=== PATIENT | male | born 1955 | race Caucasian/White ===

== ENCOUNTER 2024-03-22 05:52 | Emergency (ER) | payer MEDICAID, OTHER ==
[~2024-03-22] VITALS: Ht 185.4 cm; Wt 77.2 kg
[2024-03-22 07:37] LABS: Hematocrit 42.4 % (41.0-53.0); Hemoglobin 14.4 g/dL (13.5-17.5); Mean Corpuscular Hemoglobin 28.6 pg (28.0-32.0); Mean Corpuscular Hgb Conc. 33.9 g/dL (32.0-36.0); Mean Corpuscular Volume 84.4 fL (80.0-100.0); Platelet Count (auto) 173 10^3/uL (140-450); Red Blood Cells 5.02 10^6/uL (4.5-5.90); Red Cell Distribution Width 15.8 % (11.8-14.3); White Blood Cell 5.4 10^3/uL (4.4-10.8)
[2024-03-22] MEDS: ALBUTEROL SULF 2.5 MG/0.5ML(0.5%) NEB SOLN NEB ONE (07:38)
[2024-03-22] MEDS: IPRATROPIUM BROM 0.5 MG/2.5ML INH SOL NEB ONE (07:39)
[2024-03-22 07:44] LABS: Anion Gap 5 (5-15); Carbon Dioxide 27 mmol/L (20-30); Chloride 108 mmol/L (98-107); Potassium 4.4 mmol/L (3.5-5.1); Sodium 140 mmol/L (136-145)
[2024-03-22 07:45] LABS: Calcium 9.7 mg/dL (8.7-10.4)
[2024-03-22 07:48] LABS: Band Neutrophils % (manual) 0; Basophils % (manual) 0 (0.0-2.0); Blast Cells 0; Eosinophils % (manual) 0 (0-7); Metamyelocytes % 0; Myelocytes % 0; Promyelocytes % 0; Reactive Lymphocytes 0
[2024-03-22 07:50] LABS: BUN/Creatinine Ratio 19.3 (10.0-20.0); Blood Urea Nitrogen 28 mg/dL (9-23); Glucose 97 mg/dL (74-106)
[2024-03-22 07:52] VITALS: BP 146/91; PULSE 104; RESP 22; TEMP 97.7; O2SAT 95
[2024-03-22] MEDS: methylPREDNISolone SOD SUCC 125 MG/2 ML VL IV ONE (09:06)
[2024-03-22 10:32] LABS: Lymphocytes % (manual) 19 (10.0-50.0); Monocytes % (manual) 18 (0-12); Platelet Estimate Adequate
== END 2024-03-22 09:30 | disposition left against medical advice (07) ==
LOC: ER 05:52
DX: J44.9 Chronic obstructive pulmonary disease, unspecified (principal); R07.89 Other chest pain
CPT/HCPCS: 36415; 71045; 80048; 84484; 85007; 85027; 93005; 94640; 96374; 99291; J2919

== ENCOUNTER 2024-03-28 06:54 | Inpatient (IN) | payer MEDICAID ==
[~2024-03-28] VITALS: Ht 185.4 cm; Wt 77.5 kg
[2024-03-28 08:13] LABS: Chloride 109 mmol/L (98-107); Potassium 5.3 mmol/L (3.5-5.1); Sodium 141 mmol/L (136-145)
[2024-03-28 08:14] LABS: Anion Gap 6 (5-15); Carbon Dioxide 26 mmol/L (20-30)
[2024-03-28 08:19] LABS: BUN/Creatinine Ratio 15.3 (10.0-20.0); Blood Urea Nitrogen 23 mg/dL (9-23); Glucose 110 mg/dL (74-106)
[2024-03-28 08:22] LABS: Basophils # (auto) 0 10 ^3/uL (0-0.2); Basophils % (auto) 0.5 % (0.0-2.0); Eosinophils # (auto) 0.1 10 ^3/uL (0-0.8); Eosinophils % (auto) 2.8 % (0.0-7.0); Hematocrit 39.9 % (41.0-53.0); Hemoglobin 13.6 g/dL (13.5-17.5); Lymphocytes # (auto) 1.1 10 ^3/uL (0.4-5.4); Lymphocytes % (auto) 26.3 % (10.0-50.0); Mean Corpuscular Hemoglobin 29.1 pg (28.0-32.0); Mean Corpuscular Volume 85.5 fL (80.0-100.0); Monocytes # (auto) 0.8 10 ^3/uL (0-1.3); Neutrophils # (auto) 2.2 10 ^3/uL (1.6-8.6); Neutrophils % (auto) 51.2 % (37.0-80.0); Platelet Count (auto) 175 10^3/uL (140-450); Red Blood Cells 4.67 10^6/uL (4.5-5.90); Red Cell Distribution Width 15.5 % (11.8-14.3); White Blood Cell 4.3 10^3/uL (4.4-10.8)
[2024-03-28 08:30] LABS: Monocytes % (auto) 19.2 % (0.0-12.0)
[2024-03-28] MEDS: IPRATROPIUM BROM 0.5 MG/2.5ML INH SOL NEB ONE (08:42)
[2024-03-28] MEDS: ALBUTEROL SULF 2.5 MG/0.5ML(0.5%) NEB SOLN NEB ONE (08:42)
[2024-03-28] MEDS: methylPREDNISolone SOD SUCC 125 MG/2 ML VL IV ONE (08:47)
[2024-03-28] MEDS: MAGNESIUM SULFATE 1GM/100ML 100 ML IV ONE (08:47)
[2024-03-28] MEDS: ENOXAPARIN SOD 80 MG/0.8ML SYRINGE SC ONE (08:48)
[2024-03-28 08:57] VITALS: O2SAT 98
[2024-03-28 09:31] LABS: Basophils % (manual) 0 (0.0-2.0); Blast Cells 0; Metamyelocytes % 0; Myelocytes % 0; Promyelocytes % 0; Reactive Lymphocytes 0
[2024-03-28 09:32] LABS: Eosinophils % (manual) 2 (0-7); Monocytes % (manual) 19 (0-12)
[2024-03-28 09:33] LABS: Anisocytosis Slight; Band Neutrophils % (manual) 1; Lymphocytes % (manual) 30 (10.0-50.0)
[2024-03-28 09:34] LABS: Platelet Estimate Adequate
[2024-03-28 09:35] LABS: Nucleated Red Blood Cells % 0.3 %
[2024-03-28] MEDS ORDERED: ALBUTEROL SULF 2.5 MG/0.5ML(0.5%) NEB SOLN NEB PRN (13:30)
[2024-03-28] MEDS ORDERED: DOCUSATE SOD 100 MG CAP PO PRN (13:30)
[2024-03-28] MEDS ORDERED: ACETAMINOPHEN 325 MG TAB PO PRN (13:30)
[2024-03-28] MEDS ORDERED: hydrALAZINE HCL 20 MG/ML VL IV PRN (13:30)
[2024-03-28] MEDS ORDERED: HYDROcodone-ACET 5/325MG TAB PO PRN (13:30)
[2024-03-28] MEDS ORDERED: ONDANSETRON HCL 4 MG/2 ML VIAL IV PRN (13:30)
[2024-03-28] MEDS ORDERED: IPRATROPIUM BROM 0.5 MG/2.5ML INH SOL NEB PRN (13:30)
[2024-03-28 13:44] VITALS: BP 151/98; PULSE 102; RESP 18; TEMP 98; O2SAT 98
[2024-03-28] MEDS: methylPREDNISolone SOD SUCC 40 MG/ML VL IV SCH (14:00)
[2024-03-28] MEDS: FAMOTIDINE (10MG/ML) 2ML VL IV ONE (14:26)
[2024-03-28] MEDS: SODIUM ZIRCONIUM CYCL 10 GM PAK PO ONE (14:27)
[2024-03-28] MEDS ORDERED: NITROGLYCERIN 0.4 MG SL TAB SL PRN (14:45)
[2024-03-28] MEDS ORDERED: MORPHINE SULFATE INJ 2 MG/ml SYRG IV PRN (14:45)
[2024-03-28 14:47] LABS: Magnesium 2.2 mg/dL (1.6-2.6)
[2024-03-28] MEDS: SODIUM CHLORIDE 0.9% 1,000 ML IV SCH (14:49)
[2024-03-28] MEDS: FUROSEMIDE 40 MG/4 ML VIAL IV ONE (14:50)
[2024-03-28 18:35] VITALS: O2SAT 92
[2024-03-28 18:36] LABS: Urine Bacteria None Seen /hpf (None Seen)
[2024-03-28 18:46] LABS: Urine Blood Negative /uL (Negative); Urine Clarity Clear (Clear); Urine Color Light-Yellow (Yellow); Urine Protein, UAD Negative (Negative); Urine Specific Gravity 1.009 (1.001-1.035); Urine Urobilinogen Normal (Negative); Urine WBC <1 /hpf (0 - 3); Urine pH 5.5 (5.0-9.0)
[2024-03-28 18:58] LABS: Amphetamine Screen, Urine Pos (NEGATIVE); Barbiturate Scree,Urine Neg (NEGATIVE); Benzodiazephine Screen, Urine Neg (NEGATIVE); Cocaine Screen, Urine Neg (NEGATIVE); Opiate Scree,Urine Neg (NEGATIVE); Phencyclidine Screen, Urine Neg (NEGATIVE)
[2024-03-28 18:59] LABS: Cannabinoid Screen, Urine Neg (NEGATIVE)
[2024-03-28 19:55] VITALS: PULSE 103; RESP 25; O2SAT 95
[2024-03-28 21:57] VITALS: BP 137/84; PULSE 101; RESP 20; TEMP 98.8; O2SAT 98
[2024-03-28 22:15] VITALS: BP 137/84; PULSE 101; RESP 20; TEMP 98.8; O2SAT 98
[2024-03-28] MEDS: ATORVASTATIN 20 MG TAB PO SCH (22:20)
[2024-03-28] MEDS: CARVEDILOL 3.125 MG TAB PO SCH (22:38)
[2024-03-29] VITALS (10 sets, daily range): BP systolic 106–150; BP diastolic 66–86; PULSE 68–99; RESP 17–20; TEMP 97.5–99.4; O2SAT 90–98
[2024-03-29 07:41] LABS: Basophils # (auto) 0 10 ^3/uL (0-0.2); Basophils % (auto) 0.1 % (0.0-2.0); Eosinophils # (auto) 0 10 ^3/uL (0-0.8); Hematocrit 38.8 % (41.0-53.0); Hemoglobin 13.2 g/dL (13.5-17.5); Lymphocytes # (auto) 0.7 10 ^3/uL (0.4-5.4); Lymphocytes % (auto) 12.3 % (10.0-50.0); Mean Corpuscular Hemoglobin 28.8 pg (28.0-32.0); Mean Corpuscular Hgb Conc. 34.1 g/dL (32.0-36.0); Mean Corpuscular Volume 84.4 fL (80.0-100.0); Monocytes # (auto) 0.4 10 ^3/uL (0-1.3); Monocytes % (auto) 7.5 % (0.0-12.0); Neutrophils # (auto) 4.5 10 ^3/uL (1.6-8.6); Neutrophils % (auto) 80.1 % (37.0-80.0); Nucleated Red Blood Cells % 0.1 %; Platelet Count (auto) 172 10^3/uL (140-450); Red Blood Cells 4.59 10^6/uL (4.5-5.90); Red Cell Distribution Width 14.9 % (11.8-14.3); White Blood Cell 5.6 10^3/uL (4.4-10.8)
[2024-03-29 07:47] LABS: Alanine Aminotransferase 41 U/L (7-40); Alkaline Phosphatase 83 U/L (46-116); Anion Gap 9 (5-15); BUN/Creatinine Ratio 18.2 (10.0-20.0); Blood Urea Nitrogen 24 mg/dL (9-23); Calcium 9.5 mg/dL (8.7-10.4); Carbon Dioxide 25 mmol/L (20-30); Chloride 105 mmol/L (98-107); Glucose 122 mg/dL (74-106); Potassium 4.1 mmol/L (3.5-5.1); Sodium 139 mmol/L (136-145)
[2024-03-29 07:48] LABS: Albumin 3.7 g/dL (3.2-4.8); Aspartate Aminotransferase 22 U/L (13-40)
[2024-03-29 07:49] LABS: Bilirubin, Total 0.7 mg/dL (0.2-1.0); Total Protein 6.1 g/dL (5.7-8.2)
[2024-03-29] MEDS: FUROSEMIDE 40 MG/4 ML VIAL IV SCH (09:31)
[2024-03-29] MEDS: FAMOTIDINE (10MG/ML) 2ML VL IV SCH (09:31)
[2024-03-29] MEDS: ASPirin 81 mg TAB PO SCH (09:33)
[2024-03-29] MEDS: EMPAGLIFLOZIN 10 MG TAB PO SCH (09:33)
[2024-03-29] MEDS: AMIODARONE HCL 200 MG TAB PO SCH (21:41)
[2024-03-29] MEDS: APIXABAN 5 MG TAB PO SCH (21:42)
[2024-03-30 01:00] VITALS: BP 128/80; PULSE 96; RESP 18; TEMP 98.1; O2SAT 93
[2024-03-30 05:00] VITALS: BP 149/97; PULSE 108; RESP 18; TEMP 97.4; O2SAT 97
[2024-03-30 07:59] LABS: Basophils # (auto) 0 10 ^3/uL (0-0.2); Eosinophils # (auto) 0 10 ^3/uL (0-0.8); Eosinophils % (auto) 0.1 % (0.0-7.0); Hematocrit 40.9 % (41.0-53.0); Hemoglobin 14.2 g/dL (13.5-17.5); Lymphocytes # (auto) 1.3 10 ^3/uL (0.4-5.4); Lymphocytes % (auto) 12.5 % (10.0-50.0); Mean Corpuscular Hemoglobin 29.3 pg (28.0-32.0); Mean Corpuscular Hgb Conc. 34.8 g/dL (32.0-36.0); Mean Corpuscular Volume 84.2 fL (80.0-100.0); Monocytes # (auto) 1.2 10 ^3/uL (0-1.3); Monocytes % (auto) 12.2 % (0.0-12.0); Neutrophils # (auto) 7.7 10 ^3/uL (1.6-8.6); Neutrophils % (auto) 75.2 % (37.0-80.0); Platelet Count (auto) 209 10^3/uL (140-450); Red Blood Cells 4.85 10^6/uL (4.5-5.90); Red Cell Distribution Width 15.1 % (11.8-14.3); White Blood Cell 10.2 10^3/uL (4.4-10.8)
[2024-03-30 08:00] VITALS: PULSE 100; PULSE 99; RESP 19; O2SAT 93
[2024-03-30 08:12] LABS: Anion Gap 8 (5-15); Carbon Dioxide 26 mmol/L (20-30); Chloride 103 mmol/L (98-107); Potassium 4.2 mmol/L (3.5-5.1); Sodium 137 mmol/L (136-145)
[2024-03-30 08:13] LABS: Calcium 9.9 mg/dL (8.7-10.4)
[2024-03-30 08:18] LABS: BUN/Creatinine Ratio 22.4 (10.0-20.0); Glucose 104 mg/dL (74-106)
[2024-03-30 08:19] LABS: Blood Urea Nitrogen 35 mg/dL (9-23)
[2024-03-30 09:00] VITALS: BP 139/92; PULSE 89; RESP 18; TEMP 97.7; O2SAT 97
[2024-03-30] MEDS ORDERED: EMPA1TAB PO (10:43)
[2024-03-30] MEDS ORDERED: CARV-214 PO (10:43)
[2024-03-30] MEDS ORDERED: APIX5TAB PO (10:43)
[2024-03-30] MEDS ORDERED: ASPI-325 PO (10:43)
[2024-03-30] MEDS ORDERED: AMIO200T13 PO (10:43)
[2024-03-30] MEDS ORDERED: ATOR20TA50 PO (10:43)
[2024-03-30 13:00] VITALS: BP 149/88; PULSE 89; RESP 18; TEMP 97.8; O2SAT 97
[2024-03-30 15:50] VITALS: BP 144/98; PULSE 91; RESP 18; TEMP 98.1; O2SAT 99
[2024-03-30] MEDS ORDERED: CARVEDILOL 3.125 MG TAB PO SCH (22:00)
== END 2024-03-30 16:00 | disposition home or self-care (01) | DRG 194 ==
LOC: ER 06:54 → TELE 14:37 → TELE-WESTW 21:55
PROVIDERS: ADMIT Internal Medicine Geriatric Medicine; ATTEND Internal Medicine Geriatric Medicine
DX: I11.0 Hypertensive heart disease with heart failure (principal); I21.A1 Myocardial infarction type 2; I42.7 Cardiomyopathy due to drug and external agent; I50.23 Acute on chronic systolic (congestive) heart failure; N17.9 Acute kidney failure, unspecified; I47.20 Ventricular tachycardia, unspecified; T50.995A Adverse effect of other drugs, medicaments and biological substances, initial encounter; I08.1 Rheumatic disorders of both mitral and tricuspid valves; E87.5 Hyperkalemia; F17.210 Nicotine dependence, cigarettes, uncomplicated; J44.9 Chronic obstructive pulmonary disease, unspecified; F15.10 Other stimulant abuse, uncomplicated; I48.0 Paroxysmal atrial fibrillation; Y92.89 Other specified places as the place of occurrence of the external cause; Z79.899 Other long term (current) drug therapy
CPT/HCPCS: 36415; 71045; 80048; 80053; 80061; 80307; 81001; 83036; 83735; 83880; 84443; 84484; 85025; 93005; 93306; 94640; 99291; G0378; J3490

== ENCOUNTER → 2024-04-15 | Outpatient (CLI) | payer MEDICAID ==
[~2024-04-15] MED LIST: AMIO200T13 PO; APIX5TAB PO; ASPI-325 PO; ATOR20TA50 PO; CARV-214 PO; EMPA1TAB PO
[2024-04-15 08:30] LABS: Hematocrit 41.5 % (41.0-53.0); Hemoglobin 14.1 g/dL (13.5-17.5); Mean Corpuscular Hgb Conc. 34.1 g/dL (32.0-36.0); Mean Corpuscular Volume 85.2 fL (80.0-100.0); Platelet Count (auto) 163 10^3/uL (140-450); Red Blood Cells 4.87 10^6/uL (4.5-5.90); Red Cell Distribution Width 15.7 % (11.8-14.3); White Blood Cell 4.4 10^3/uL (4.4-10.8)
[2024-04-15 08:38] LABS: Basophils % (manual) 0 (0.0-2.0); Blast Cells 0; Metamyelocytes % 0; Myelocytes % 0; Promyelocytes % 0; Reactive Lymphocytes 0
[2024-04-15 09:11] LABS: Band Neutrophils % (manual) 8; Eosinophils % (manual) 4 (0-7); Lymphocytes % (manual) 36 (10.0-50.0); Monocytes % (manual) 15 (0-12); Platelet Estimate Adequate
[2024-04-15 09:27] LABS: Alanine Aminotransferase 76 U/L (7-40); Alkaline Phosphatase 88 U/L (46-116); Anion Gap 5 (5-15); Aspartate Aminotransferase 34 U/L (13-40); BUN/Creatinine Ratio 14.9 (10.0-20.0); Blood Urea Nitrogen 22 mg/dL (9-23); Calcium 9.9 mg/dL (8.7-10.4); Carbon Dioxide 27 mmol/L (20-31); Chloride 108 mmol/L (98-107); Glucose 97 mg/dL (74-106); LDL Cholesterol 59 mg/dL (< 100); Potassium 4.9 mmol/L (3.5-5.1); Sodium 140 mmol/L (136-145); Triglycerides 62 mg/dL (< 150)
[2024-04-15 09:28] LABS: Bilirubin, Total 0.9 mg/dL (0.2-1.0); Cholesterol 116 mg/dL (< 200); HDL Cholesterol 51 mg/dL (40-59); Total Protein 6.4 g/dL (5.7-8.2)
== END | disposition home or self-care (01) ==
LOC: LAB 07:42
PROVIDERS: ATTEND Internal Medicine
DX: I50.9 Heart failure, unspecified (principal)
CPT/HCPCS: 36415; 80053; 80061; 82607; 83036; 83880; 84443; 85007; 85027

== ENCOUNTER → 2024-04-28 | Outpatient (CLI) | payer MEDICAID ==
[2024-04-28 11:24] LABS: Urine Bacteria None Seen /hpf (None Seen)
[2024-04-28 11:27] LABS: Hematocrit 44.4 % (41.0-53.0); Hemoglobin 15.1 g/dL (13.5-17.5); Mean Corpuscular Hemoglobin 28.8 pg (28.0-32.0); Mean Corpuscular Hgb Conc. 34.1 g/dL (32.0-36.0); Mean Corpuscular Volume 84.4 fL (80.0-100.0); Platelet Count (auto) 173 10^3/uL (140-450); Red Blood Cells 5.26 10^6/uL (4.5-5.90); Red Cell Distribution Width 15.1 % (11.8-14.3); White Blood Cell 3.2 10^3/uL (4.4-10.8)
[2024-04-28 11:30] LABS: Band Neutrophils % (manual) 0; Basophils % (manual) 0 (0.0-2.0); Blast Cells 0; Metamyelocytes % 0; Myelocytes % 0; Promyelocytes % 0; Reactive Lymphocytes 0
[2024-04-28 11:55] LABS: Urine Blood Negative /uL (Negative); Urine Clarity Clear (Clear); Urine Color Yellow (Yellow); Urine Mucus FEW (None Seen); Urine Protein, UAD TRACE (Negative); Urine Specific Gravity 1.022 (1.001-1.035); Urine Urobilinogen Normal (Negative); Urine WBC 3 /hpf (0 - 3)
[2024-04-28 12:07] LABS: Anion Gap 5 (5-15); Carbon Dioxide 28 mmol/L (20-31); Chloride 105 mmol/L (98-107); Potassium 4.5 mmol/L (3.5-5.1); Sodium 138 mmol/L (136-145)
[2024-04-28 12:09] LABS: Calcium 9.8 mg/dL (8.7-10.4)
[2024-04-28 12:13] LABS: BUN/Creatinine Ratio 13.4 (10.0-20.0); Blood Urea Nitrogen 20 mg/dL (9-23); Glucose 137 mg/dL (74-106)
[2024-04-28 12:34] LABS: Eosinophils % (manual) 2 (0-7); Lymphocytes % (manual) 50 (10.0-50.0); Monocytes % (manual) 10 (0-12); Platelet Estimate Adequate
== END | disposition home or self-care (01) ==
LOC: LAB 11:12
PROVIDERS: ATTEND Internal Medicine
DX: I50.33 Acute on chronic diastolic (congestive) heart failure (principal); R73.03 Prediabetes
CPT/HCPCS: 36415; 80048; 81001; 82043; 83880; 85007; 85027

== ENCOUNTER → 2024-05-23 | Outpatient (CLI) | payer MEDICAID ==
[2024-05-23 11:35] LABS: Urine Bacteria None Seen /hpf (None Seen)
[2024-05-23 11:45] LABS: Urine Blood Negative /uL (Negative); Urine Clarity Clear (Clear); Urine Color Light-Yellow (Yellow); Urine Protein, UAD Negative (Negative); Urine Urobilinogen Normal (Negative); Urine WBC <1 /hpf (0 - 3); Urine pH 5.5 (5.0-9.0)
[2024-05-23 13:03] LABS: Amphetamine Screen, Urine Neg (NEGATIVE); Barbiturate Scree,Urine Neg (NEGATIVE); Benzodiazephine Screen, Urine Neg (NEGATIVE); Cannabinoid Screen, Urine Pos (NEGATIVE); Cocaine Screen, Urine Neg (NEGATIVE); Opiate Scree,Urine Neg (NEGATIVE); Phencyclidine Screen, Urine Neg (NEGATIVE)
== END | disposition home or self-care (01) ==
LOC: LAB 11:18
PROVIDERS: ATTEND Internal Medicine
DX: I10 Essential (primary) hypertension (principal)
CPT/HCPCS: 80307; 81001; 82274

== ENCOUNTER → 2024-05-24 | Outpatient (CLI) | payer MEDICAID ==
[2024-05-24 08:34] LABS: Hematocrit 43.3 % (41.0-53.0); Hemoglobin 14.8 g/dL (13.5-17.5); Mean Corpuscular Hemoglobin 28.5 pg (28.0-32.0); Mean Corpuscular Hgb Conc. 34.1 g/dL (32.0-36.0); Mean Corpuscular Volume 83.6 fL (80.0-100.0); Platelet Count (auto) 158 10^3/uL (140-450); Red Blood Cells 5.18 10^6/uL (4.5-5.90); Red Cell Distribution Width 15.1 % (11.8-14.3); White Blood Cell 3.6 10^3/uL (4.4-10.8)
[2024-05-24 08:45] LABS: Band Neutrophils % (manual) 0; Basophils % (manual) 0 (0.0-2.0); Blast Cells 0; Metamyelocytes % 0; Myelocytes % 0; Promyelocytes % 0; Reactive Lymphocytes 0
[2024-05-24 09:26] LABS: Alanine Aminotransferase 28 U/L (7-40); Albumin 4.3 g/dL (3.2-4.8); Alkaline Phosphatase 98 U/L (46-116); Anion Gap 5 (5-15); Aspartate Aminotransferase 20 U/L (13-40); BUN/Creatinine Ratio 15.2 (10.0-20.0); Blood Urea Nitrogen 22 mg/dL (9-23); Calcium 10.5 mg/dL (8.7-10.4); Carbon Dioxide 30 mmol/L (20-31); Chloride 106 mmol/L (98-107); Glucose 98 mg/dL (74-106); LDL Cholesterol 77 mg/dL (< 100); Sodium 141 mmol/L (136-145); Triglycerides 81 mg/dL (< 150)
[2024-05-24 09:27] LABS: Bilirubin, Total 0.6 mg/dL (0.2-1.0); Cholesterol 141 mg/dL (< 200); HDL Cholesterol 50 mg/dL (40-59); Total Protein 7.2 g/dL (5.7-8.2)
[2024-05-24 09:53] LABS: Lymphocytes % (manual) 34 (10.0-50.0)
[2024-05-24 09:54] LABS: Eosinophils % (manual) 6 (0-7); Monocytes % (manual) 27 (0-12)
[2024-05-24 09:55] LABS: Platelet Estimate Adequate; RBC Morphology Normal
[2024-05-24 12:08] LABS: Prostate Specific Antigen 1.76 ng/mL (0.0-4.0)
[2024-05-24 12:14] LABS: Folate (Folic Acid) 20.3 ng/mL (>5.38)
== END | disposition home or self-care (01) ==
LOC: LAB 07:57
PROVIDERS: ATTEND Internal Medicine
DX: I10 Essential (primary) hypertension (principal); Z79.899 Other long term (current) drug therapy
CPT/HCPCS: 36415; 80053; 80061; 82306; 82607; 82746; 83036; 84153; 84443; 85007; 85027

== ENCOUNTER → 2024-07-08 | Outpatient (CLI) | payer MEDICAID ==
[2024-07-08 07:16] LABS: Anion Gap 5 (5-15); Carbon Dioxide 28 mmol/L (20-31); Chloride 105 mmol/L (98-107); Potassium 4.2 mmol/L (3.5-5.1); Sodium 138 mmol/L (136-145)
[2024-07-08 07:21] LABS: Calcium 10.6 mg/dL (8.7-10.4); Glucose 93 mg/dL (74-106)
[2024-07-08 07:22] LABS: Blood Urea Nitrogen 17 mg/dL (9-23)
== END | disposition home or self-care (01) ==
LOC: LAB 06:55
PROVIDERS: ATTEND Internal Medicine
DX: I10 Essential (primary) hypertension (principal)
CPT/HCPCS: 36415; 80048

== ENCOUNTER 2024-07-13 15:16 | Emergency (ER) | payer MEDICAID ==
[~2024-07-13] VITALS: Ht 185.4 cm; Wt 78.0 kg
--- NOTE | 2024-07-13 16:30 | ED.PDOC ---
HPI Comments HPI: Poor Historian. 68-year-old male sent from his PCP's office because he was hypertensive. Patient has not been taking any of his blood pressure medication because he was unable to pick it up from the pharmacy. Patient was found according to the patient of systolic blood pressure in the 180s then 200s. Patient does not know his medications list and what medical conditions he has however he states he is on Eliquis. He also states that is past medical history includes a heart functioning at 15% Patient otherwise denies any acute symptoms. Past Medcial History: Past Surgical History: Tonsillectomy REVIEW OF SYSTEMS: CONSTITUTIONAL: Denies acute: fever, diaphoresis, chills, generalized weakness. HEAD: Denies acute: headache, photophobia Eyes: Denies acute: Double vision, vision loss, eye pain, eye discharge. EARS: Denies acute: tinnitus, hearing loss, ear discharge, ear pain, THROAT: Denies acute: sore throat, swelling, difficulty swallowing , pain with sw allowing, change in voice. NECK: Denies acute: neck pain, neck swelling, stiff neck. HEART: Denies acute : chest pain, palpitations, LUNGS: Denies acute: SOB, wheezing, cough, hemoptysis ABDOMEN: Denies acute: abdominal pain, Nausea, Vomiting, diarrhea, melena , hematemesis, hematochezia SKIN: Denies acute: rash, redness, lesions, itchiness. EXTREMITIES: Denies acute: calf pain, numbness, tingling, weakness, denies pain in extremity. Denies acute: Low back pain. Neuro: Denies acute: focal neurological deficit, motor or sensory focal neurological deficit, tremors, seizure like activity, confusion, dizziness, change in mental status, loss of bowel or bladder function, cauda equina like symptoms. : Denies acute: dysuria, hematuria, flank pain, increase in urinary frequency. PSYCH: Denies acute: hallucination, suicidal ideation, homicidal ideation. PHYSICAL EXAM: General: no acute distress, awake and alert. Head: normocephalic, atraumatic. Neck: supple, trachea is midline, no swelling. Throat: Normal phonation. Eyes:, no erythema, no purulent discharge, no proptosis, no icterus. Heart: regular rate, regular rhythm, no significant murmur appreciated. Lungs: no apparent respiratory distress, Able to speak in full sentences. No wheezing, no rhonchi, no crackles. No stridors Clear to auscultation bilaterally. Abdomen: non tender to palpation, non distended, soft, no guarding, no rebound, + bowel sounds. Neuro: Awake, Alert, oriented to name, self, situation, follows commands GCS=15. Speech is normal. Skin: no petechia, no purpura, no cyanosis, non-pale, not jaundice. Lower extremities: --trace bilateral - Pitting edema no deformity, no focal swelling, no calf TTP. Makes eye contact. moves all four extremities. Face: no apparent facial droop. Ambulating in the ED independently. Chief Complaint: High Blood Pressure Time Seen by MD: 15:25 Primary Care Provider: NONE Reviewed Notes: Nurses Notes, Allergies Allergies: Coded Allergies: NO KNOWN ALLERGIES (Unverified , 03/22/24) Home Meds Active Scripts Apixaban Base (ELIQUIS) 5 Mg Tab, 5 MG PO BID for 30 Days, #60 TAB 3 Refills Prov:BENNIE ARECHIGA RESIDENT 03/30/24 Empagliflozin (Jardiance) 10 Mg Tab, 10 MG PO DAILY for 30 Days, #30 TAB 3 Refills Prov:BENNIE ARECHIGA RESIDENT 03/30/24 Carvedilol (COREG) 3.125 Mg Tab, 6.25 MG PO Q12HR for 30 Days, #60 TAB 3 Refills Prov:BENNIE ARECHIGA [facility] 03/30/24 Atorvastatin Calcium (ATORVASTATIN CALCIUM) 20 Mg Tab, 10 MG PO HS for 30 Days, #15 TAB 3 Refills Prov:BENNIE ARECHIGA RESIDENT 03/30/24 Aspirin (Aspirin Low Dose) 81 Mg Tab, 81 MG PO DAILY for 30 Days, #30 TAB 3 Refills Prov:BENNIE ARECHIGA [facility] 03/30/24 Amiodarone HCl (Amiodarone HCl) 200 Mg Tab, 200 MG PO Q12HR for 30 Days, #60 TAB Prov:BENNIE ARECHIGA RESIDENT 03/30/24 Information Source: Patient Past Medical History PAST MEDICAL HISTORY: Denies Surgical History: Denies all surgeries Family History Family History: Reviewed,noncontributory to illness, Unknown Social History Smoker: Cigarettes Alcohol: Denies ETOH Use Drugs: Denies Drug Use Lives In: Home Was a procedure done? Was a procedure done?: No X-Ray, Labs, Meds, VS Vital Signs Date Time Temp Pulse Resp B/P (MAP) Pulse Ox O2 Delivery O2 Flow Rate FiO2 07/13/24 20:49 91 16 143/88 (106) 98 07/13/24 20:49 143/88 07/13/24 19:49 194/111 07/13/24 19:45 Room Air* 0 21 07/13/24 19:45 89 16 194/111 (138) 97 07/13/24 18:39 98.6 87 16 161/98 (119) 96 98.6 07/13/24 17:45 99 18 97 Room Air 07/13/24 17:43 208/115 07/13/24 15:38 99.6 96 20 193/121 (145) 99 185/107 (133) Lab Test 07/13/24 19:16 07/13/24 18:22 Range/Units Troponin I High Sensitivity 38 38 </=54 ng/L White Blood Count 4.3 L 4.4-10.8 10^3/uL Red Blood Count 5.09 4.5-5.90 10^6/uL Hemoglobin 14.3 13.5-17.5 g/dL Hematocrit 41.8 41.0-53.0 % Mean Corpuscular Volume 82.2 80.0-100.0 fL Mean Corpuscular Hemoglobin 28.1 28.0-32.0 pg Mean Corpuscular Hemoglobin Concent 34.2 32.0-36.0 g/dL Red Cell Distribution Width 15.1 H 11.8-14.3 % Platelet Count 200 140-450 10^3/uL Mean Platelet Volume 7.2 6.9-10.8 fL Neutrophils (%) (Auto) 37.0-80.0 % Lymphocytes (%) (Auto) 10.0-50.0 % Monocytes (%) (Auto) 0.0-12.0 % Basophils (%) (Auto) 0.0-2.0 % Neutrophils # (Auto) 1.6-8.6 10 ^3/uL Lymphocytes # (Auto) 0.4-5.4 10 ^3/uL Monocytes # (Auto) 0-1.3 10 ^3/uL Differential Total Cells Counted 100.0 100 Neutrophils % (Manual) 50 37.0-80.0 Band Neutrophils % (Manual) 0 Lymphocytes % (Manual) 42 10.0-50.0 Monocytes % (Manual) 6 0-12 Eosinophils % (Manual) 2 0-7 Basophils % (Manual) 0 0.0-2.0 Metamyelocytes % (manual) 0 Myelocytes % (Manual) 0 Promyelocytes % (Manual) 0 Blast Cells % (Manual) 0 Reactive Lymphocytes 0 Platelet Estimate Adequate Sodium Level 138 136-145 mmol/L Potassium Level 4.1 3.5-5.1 mmol/L Chloride Level 105 98-107 mmol/L Carbon Dioxide Level 26 20-31 mmol/L Anion Gap 7 5-15 Blood Urea Nitrogen 22 9-23 mg/dL Creatinine 1.31 H 0.700-1.30 mg/dL Glomerular Filtration Rate Calc 59 >90 mL/min BUN/Creatinine Ratio 16.8 10.0-20.0 Serum Glucose 94 74-106 mg/dL Calcium Level 10.4 8.7-10.4 mg/dL Total Bilirubin 0.5 0.2-1.0 mg/dL Aspartate Amino Transferase (AST) 20 13-40 U/L Alanine Aminotransferase (ALT) 12 7-40 U/L Alkaline Phosphatase 108 46-116 U/L Total Protein 7.5 5.7-8.2 g/dL Albumin 4.3 3.2-4.8 g/dL Current Medications Medications (Trade) Dose Ordered Sig/Mireya Route Start Time Stop Time Status Last Admin Nitroglycerin (Ntrostat Sublingual) 0.4 mg ONCE ONCE 07/13/24 16:30 07/13/24 16:31 DC 07/13/24 17:43 Nitroglycerin (Ntrostat Sublingual) 0.4 mg ONCE ONCE 07/13/24 19:45 07/13/24 19:46 DC 07/13/24 19:[address] [address] Ph: [phone] DIAGNOSTIC IMAGING Diagnostic Imaging Report : [id number] Signed PATIENT: MADHAVI CORNELL SACCT: [id number] UNIT: [id number] : 1955 LOC: ER ROOM / BED: / AGE / SEX: 68 / M ADM STATUS: REG ER SERVICE 29 ORDERING PHYSICIAN: DORINDA PARRISH DO PROCEDURE(s): CXRP - CHEST PORTABLE REASON: htn ORDER NUMBER(s): [id number], ACCESSION NUMBER(s): [id number] CHEST RADIOGRAPH Indication: htn Technique: Single frontal view of the chest was obtained COMPARISON: XY CHEST PORTABLE on DOS: 03/28/24, XY CHEST PORTABLE on DOS: 03/22/24 FINDINGS: Lines and Tubes: None Lungs: Clear Pleura: Questionable trace pleural effusion. No pneumothorax. Cardiomediastinal contours: Unremarkable Bones: Unremarkable IMPRESSION: 1. Questionable trace right pleural effusion ATED BY: TERRELL HEART MD DICTATED DATE/TIME: 07/13/242006 SIGNED BY: TERRELL HEART MD SIGNED DATE/TIME: 07/13/242006 CC: Time of 1ST Reevaluation: 16:29 (I spoke with the patient's PCP Dr. Newman. He came and evaluated the patient at bedside recommends blood pressure control here in the ED and discharge the patient home. ) Patient Education/Counseling: Diagnosis, Treatment Family Education/Counseling: No Family Present Comments MDM: Patient presented with the above HPI.----- hypertension -workup was initiated. patient was found with the above mentioned diagnosis. The following tests / medications were ordered: nitroglycerin, chest x-ray, troponin x3, CMP, CBC, EKG x1 Patient ED course and VS have been stabilized. Patient has been reassessed in the ED and remained in a stable condition. Patient has been observed in the ED adequate length of time to insure improvement/stability. Escalation of care considered: Consideration of escalation to observation or admission. patient was DISCHARGED after further evaluation and treatment of their presentation. All the reports of any imaging studies that were ordered by myself were reviewed by myself. Departure 1 Departure Time of Disposition: 20:48 Impression: Primary Impression: Hypertensive urgency Disposition: HOME / SELF CARE / HOMELESS Condition: Stable Additional Instructions: Additional discharge instructions: You MUST follow-up with your primary care/family doctor in 1 to 2 days. If you are unable to see your primary care/family doctor, please return to our emergency room for re-assessment and re-evaluation in 1 to 2 days. Return to the emergency room here in our facility or to the nearest ER [facility] if your symptoms change or worsen. CONSULTATIONS: you MUST Follow-up for consultation as soon as possible with: -cardiology in 1-2 days. Please call for appointment You MUST call the consultants office yourself to make an appointment. You may need to arrange that through your insurance and/or your primary/family doctor. If you are unable to see the systems development consultant in 1 to 2 days, you must return to our emergency room (or any other ER of your choice) for re-assessment and re- evaluation. Adequate fluid hydration. Monitoring blood pressure at home at least 3 times a day. Discharged With: Self Critical Care Note Critical Care Time?: Yes (45 min-critical care time only) I personally scribed for DORINDA PARRISH DO ([email or web address]) on 07/13/24 at 20:42. Electronically submitted by Lisa Paris ([email or web address]). I personally scribed for DORINDA PARRISH DO ([email or web address]) on 07/13/24 at 21:34. Electronically submitted by Lisa Paris ([email or web address]). I personally scribed for DORINDA PARRISH DO ([email or web address]) on 07/13/24 at 21:38. Electronically submitted by Lisa Paris ([email or web address]). DORINDA PARRISH DO Jul 13, 2024 16:30
[2024-07-13] MEDS: NITROGLYCERIN 0.4 MG SL TAB SL ONE ×2 (17:43→19:49)
[2024-07-13 18:39] VITALS: TEMP 98.6
[2024-07-13 18:42] LABS: Hematocrit 41.8 % (41.0-53.0); Hemoglobin 14.3 g/dL (13.5-17.5); Mean Corpuscular Hemoglobin 28.1 pg (28.0-32.0); Mean Corpuscular Hgb Conc. 34.2 g/dL (32.0-36.0); Mean Corpuscular Volume 82.2 fL (80.0-100.0); Platelet Count (auto) 200 10^3/uL (140-450); Red Blood Cells 5.09 10^6/uL (4.5-5.90); Red Cell Distribution Width 15.1 % (11.8-14.3); White Blood Cell 4.3 10^3/uL (4.4-10.8)
[2024-07-13 18:52] LABS: Band Neutrophils % (manual) 0; Basophils % (manual) 0 (0.0-2.0); Blast Cells 0; Metamyelocytes % 0; Myelocytes % 0; Promyelocytes % 0; Reactive Lymphocytes 0
[2024-07-13 19:00] LABS: Alanine Aminotransferase 12 U/L (7-40); Albumin 4.3 g/dL (3.2-4.8); Alkaline Phosphatase 108 U/L (46-116); Anion Gap 7 (5-15); Aspartate Aminotransferase 20 U/L (13-40); BUN/Creatinine Ratio 16.8 (10.0-20.0); Blood Urea Nitrogen 22 mg/dL (9-23); Calcium 10.4 mg/dL (8.7-10.4); Carbon Dioxide 26 mmol/L (20-31); Chloride 105 mmol/L (98-107); Glucose 94 mg/dL (74-106); Potassium 4.1 mmol/L (3.5-5.1); Sodium 138 mmol/L (136-145)
[2024-07-13 19:01] LABS: Bilirubin, Total 0.5 mg/dL (0.2-1.0); Total Protein 7.5 g/dL (5.7-8.2)
[2024-07-13 19:22] LABS: Eosinophils % (manual) 2 (0-7); Lymphocytes % (manual) 42 (10.0-50.0); Monocytes % (manual) 6 (0-12); Platelet Estimate Adequate
--- NOTE | 2024-07-13 20:09 | DVH ---
CHEST RADIOGRAPH Indication: htn Technique: Single frontal view of the chest was obtained COMPARISON: XY CHEST PORTABLE on DOS: 03/28/24, XY CHEST PORTABLE on DOS: 03/22/24 FINDINGS: Lines and Tubes: None Lungs: Clear Pleura: Questionable trace pleural effusion. No pneumothorax. Cardiomediastinal contours: Unremarkable Bones: Unremarkable IMPRESSION: 1. Questionable trace right pleural effusion
[2024-07-13 20:49] VITALS: BP 143/88; PULSE 91; RESP 16; O2SAT 98
--- NOTE | 2024-07-14 19:08 | ECG ---
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
== END 2024-07-13 20:54 | disposition home or self-care (01) ==
LOC: ER 15:16
DX: I16.0 Hypertensive urgency (principal); F17.210 Nicotine dependence, cigarettes, uncomplicated; Z79.01 Long term (current) use of anticoagulants; Z79.82 Long term (current) use of aspirin; Z79.84 Long term (current) use of oral hypoglycemic drugs; Z79.899 Other long term (current) drug therapy; Z90.89 Acquired absence of other organs
CPT/HCPCS: 36415; 71045; 80053; 84484; 85007; 85027; 93005

== ENCOUNTER → 2024-09-19 | Outpatient (CLI) | payer MEDICAID ==
--- NOTE | 2024-09-20 10:37 | DVHNC2 ---
Procedure - September 19, 2024: 6 minute walk test interpretation 6 minutes of ambulation completed. Expected heart rate achieved. No exertional hypoxia. No reduction in distance walk. JONNA FREDERICK RESIDENT Sep 20, 2024 10:37
--- NOTE | 2024-09-20 10:39 | DVHNC2 ---
Procedure - September 19, 2024: Pulmonary function test interpretation: No obstructive or restrictive ventilatory defects. No significant bronchodilator response. Of note FVC improved by 40 mL. Total lung capacity is below normal limits (71% of predicted, 5.13 L). Diffusion capacity is within normal limits, 89% of predicted. JONNA FREDERICK RESIDENT Sep 20, 2024 10:39
== END | disposition home or self-care (01) ==
LOC: RT 08:34
PROVIDERS: ATTEND Internal Medicine Pulmonary Disease
DX: R06.09 Other forms of dyspnea (principal)
CPT/HCPCS: 94060; 94618; 94727; 94729